=== PATIENT | female | born 1995 | race Two or more races ===

== ENCOUNTER 2022-05-29 01:24 | Emergency (ER) | payer OTHER ==
[~2022-05-29] VITALS: Ht 152.4 cm; Wt 51.4 kg
[2022-05-29 01:26] VITALS: BP 131/74
[2022-05-29 01:44] LABS: COVID AG,FIA SOURCE NASAL SWAB
[2022-05-29 01:55] LABS: APPEARANCE,URINE CLEAR (CLEAR); BILIRUBIN,URINE NEGATIVE (NEGATIVE); GLUCOSE, URINE (UA) NEGATIVE (NEGATIVE); KETONES,URINE NEGATIVE (NEGATIVE); LEUKOCYTE ESTERASE ,URINE NEGATIVE (NEGATIVE); NITRATE,URINE NEGATIVE (NEGATIVE); OCCULT BLOOD,URINE NEGATIVE (NEGATIVE); PH,URINE 6.5 (5.0-8.0); PROTEIN,URINE NEGATIVE (NEGATIVE); SPECIFIC GRAVITIY, URINE 1.007 (1.003-1.030); UROBILINOGEN,URINE <=1.0 mg/dL (<=1.0)
[2022-05-29 01:58] LABS: RAPID GROUP A STREP NEGATIVE (NEGATIVE)
[2022-05-29 02:04] LABS: BACTERIA,URINE None Seen /HPF (None Seen); RBC,URINE None Seen /HPF (0-2); SQUAMOUS EPITHELIAL CELL,UR None Seen /LPF (None Seen); WBC,URINE None Seen /HPF (0-5)
[2022-05-29 02:07] LABS: INFLUENZA TYPE A NEGATIVE FOR TYPE A (NEGATIVE); INFLUENZA TYPE B NEGATIVE FOR TYPE B (NEGATIVE)
[2022-05-29] MEDS ORDERED: AZITHROMYCIN 500 MG TABLET PO ONE (03:00)
[2022-05-29] MEDS ORDERED: LIDOCAINE/PF 1% 2 ML VIAL IM ONE (03:00)
[2022-05-29] MEDS ORDERED: CefTRIAXone SODIUM 1 GM/VIAL IM ONE (03:00)
[2022-05-29] MEDS ORDERED: ACETAMINOPHEN 500 MG TABLET PO ONE (03:00)
[2022-05-29] MEDS ORDERED: GuaiFENesin/D-METHORPHAN [SUGAR-FREE] 200-20MG/10 ML SYRUP UDCUP PO ONE (03:00)
[2022-05-29] MEDS ORDERED: GUAIFDM PO (03:47)
[2022-05-29] MEDS ORDERED: MICO24CM2 VG (03:47)
[2022-05-29] MEDS ORDERED: ACET-66 PO (03:47)
[2022-05-29] MEDS ORDERED: DOXY-354 PO (03:47)
== END 2022-05-29 03:49 | disposition home or self-care (01) ==
LOC: EMS 01:25
DX: J02.9 Acute pharyngitis, unspecified (principal); N76.0 Acute vaginitis; Z20.822 Contact with and (suspected) exposure to COVID-19
CPT/HCPCS: 99285; 87426; 81001; 84703; 87430; 87804; 87491; 87591; 96372; J0696; J3490; Q9967